=== PATIENT | female | born 1990 | race Caucasian/White ===

== ENCOUNTER → 2018-06-12 | Outpatient (REF) | payer OTHER ==
[2018-06-12 18:48] LABS: HCG, SERUM QUANTITATIVE 18554 MIU/ML
[2018-06-12 19:23] LABS: HEMATOCRIT 33.6 % (36.0-47.0); HEMOGLOBIN 10.9 g/dl (12.0-15.5); MEAN CORPUSCULAR HEMOGLOBIN 28.5 pg (27.0-33.0); MEAN CORPUSCULAR HGB CONC 32.4 g/dl (32.0-36.5); MEAN CORPUSCULAR VOLUME 87.7 fl (80.0-96.0); PLATELET COUNT, AUTOMATED 215 10^3/uL (150-450); RED BLOOD COUNT 3.83 10^6/uL (4.00-5.40); RED CELL DISTRIBUTION WIDTH 12.7 % (11.5-14.5); WHITE BLOOD COUNT 7.3 10^3/uL (4.0-10.0)
[2018-06-13 10:34] LABS: RUBELLA IgG QUALITATIVE IMMUNE (IMMUNE)
[2018-06-13 10:44] LABS: HBsAg Prenatal NEGATIVE (NEGATIVE)
[2018-06-13 11:02] LABS: HEPATITIS C VIRUS ABY INDEX 0.1 INDEX (<0.8)
[2018-06-13 11:03] LABS: HIV 1&2 SCREEN CENTAUR NEGATIVE (NEGATIVE)
== END ==
LOC: M LAB REF 17:07
DX: O36.80X0 Pregnancy with inconclusive fetal viability, not applicable or unspecified (principal)

== ENCOUNTER → 2018-06-20 | Outpatient (CLI) | payer OTHER ==
[2018-06-20 15:40] LABS: HEMOGLOBIN 10.5 g/dl (12.0-15.5); MEAN CORPUSCULAR HEMOGLOBIN 29.2 pg (27.0-33.0); MEAN CORPUSCULAR HGB CONC 33.9 g/dl (32.0-36.5); MEAN CORPUSCULAR VOLUME 86.4 fl (80.0-96.0); PLATELET COUNT, AUTOMATED 206 10^3/uL (150-450); RED BLOOD COUNT 3.59 10^6/uL (4.00-5.40); RED CELL DISTRIBUTION WIDTH 12.7 % (11.5-14.5); WHITE BLOOD COUNT 8.1 10^3/uL (4.0-10.0)
[2018-06-20 15:55] LABS: GLUCOSE CHALLENGE TEST 1 HOUR 99 MG/DL (LESS THAN 140)
== END ==
LOC: M LAB 14:21
DX: Z36.89 Encounter for other specified antenatal screening (principal); Z3A.00 Weeks of gestation of pregnancy not specified
CPT/HCPCS: 82950

== ENCOUNTER → 2018-06-24 | Outpatient (REF) | payer OTHER ==
[2018-06-24 14:51] LABS: CHLAMYDIA DNA AMPLIFICATION NEGATIVE (NEGATIVE); GC DNA AMPLIFICATION NEGATIVE (NEGATIVE)
== END ==
LOC: M LAB REF 13:05
DX: Z34.83 Encounter for supervision of other normal pregnancy, third trimester (principal); Z3A.00 Weeks of gestation of pregnancy not specified
CPT/HCPCS: 87591

== ENCOUNTER 2018-08-15 08:03 | Inpatient (IN) | payer OTHER ==
[2018-08-15] MEDS: LR 1,000 ML IV ×2 (09:19→16:21)
[2018-08-15] MEDS: PENICILLIN G POTASSIUM IV 5 MU in D5W MINI-BAG PLUS 100 ML IV (09:19)
[2018-08-15 09:49] LABS: HEMOGLOBIN 10.8 g/dl (12.0-15.5); MEAN CORPUSCULAR HEMOGLOBIN 27.3 pg (27.0-33.0); MEAN CORPUSCULAR HGB CONC 32.7 g/dl (32.0-36.5); MEAN CORPUSCULAR VOLUME 83.3 fl (80.0-96.0); PLATELET COUNT, AUTOMATED 187 10^3/uL (150-450); RED BLOOD COUNT 3.96 10^6/uL (4.00-5.40); RED CELL DISTRIBUTION WIDTH 14.8 % (11.5-14.5); WHITE BLOOD COUNT 8.1 10^3/uL (4.0-10.0)
[2018-08-15 10:11] LABS: AMPHETAMINES URINE REFLEX NEGATIVE (NEGATIVE); BARBITURATES URINE REFLEX NEGATIVE (NEGATIVE); BENZODIAZEPINES URINE REFLEX NEGATIVE (NEGATIVE); CANNABINOIDS URINE REFLEX NEGATIVE (NEGATIVE); COCAINE METABOLITE URINE REFLE NEGATIVE (NEGATIVE); METHADONE URINE REFLEX NEGATIVE (NEGATIVE); OPIATES URINE REFLEX NEGATIVE (NEGATIVE); PHENCYCLIDINE URINE REFLEX NEGATIVE (NEGATIVE)
[2018-08-15] MEDS: OXYTOCIN DRIP 30 UNITS in APPROPRIATE DILUENT 1 EA IV ×2 (11:28→21:21)
[2018-08-15] MEDS: PENICILLIN G POTASSIUM IV 2.5 MU in APPROPRIATE DILUENT 1 EA IV ×2 (13:16→17:10)
[2018-08-15] MEDS ORDERED: PROMETHAZINE INJ 25 MG/ML VIAL (J2550) As Ordered (15:50)
[2018-08-15] MEDS ORDERED: BUTORPHANOL 2 MG/ML INJ (J0595) As Ordered (15:51)
[2018-08-15] MEDS: PROMETHAZINE INJ 25 MG/ML VIAL (J2550) IV (16:20)
[2018-08-15] MEDS: BUTORPHANOL 2 MG/ML INJ (J0595) IV (16:21)
[2018-08-15 18:24] LABS: CORD GAS ABE V -8.7; CORD GAS HCO3 V 17.1 MEQ/L; CORD GAS O2 SAT V 87.6 %; CORD GAS PCO2 V 36.8 mmHg; CORD GAS PH V 7.286 UNITS; CORD GAS PO2 V 45.9 mmHg; CORD GAS SBC V 17.4 MEQ/L; CORD GAS TCO2 V 18.3 MEQ/L
[2018-08-15] MEDS ORDERED: RHOGAM 300 MCG (1500 IU) INJ (J2790) IM (19:00)
[2018-08-15] MEDS ORDERED: DOCUSATE SODIUM 100 MG CAP PO (19:00)
[2018-08-15] MEDS ORDERED: ANUSOL HC CREAM 30GM TOP (19:00)
[2018-08-15] MEDS ORDERED: MEASLES,MUMPS,RUBELLA VACCINE INJ (MMR-II) (90707) SC (19:00)
[2018-08-15] MEDS ORDERED: METHYLERGONOVINE MALEATE 0.2 MG TAB PO (19:00)
[2018-08-15] MEDS ORDERED: ACETAMINOPHEN 500 MG TAB PO (19:00)
[2018-08-15] MEDS: LIDOCAINE 1% MDV 20ML VIAL INFIL (21:21)
[2018-08-16] MEDS: PRENATAL VITAMINS CHEWABLE TABLET PO (08:24)
[2018-08-16] MEDS: IBUPROFEN 800 MG TAB PO ×2 (08:25→19:53)
[2018-08-16] MEDS: DIBUCAINE 1% OINTMENT 30GM TOP (15:20)
[2018-08-17] MEDS: PRENATAL VITAMINS CHEWABLE TABLET PO (08:05)
[2018-08-17] MEDS: IBUPROFEN 800 MG TAB PO (08:06)
== END 2018-08-17 11:30 | disposition home or self-care (01) | DRG 560 ==
LOC: M LDI 08:03 → M OBS 20:13
PROVIDERS: Advanced Practice Midwife
PROC: 0W8NXZZ Division of Female Perineum, External Approach (ICD-10-PCS; principal; 2018-08-15)
PROC: 10E0XZZ Delivery of Products of Conception, External Approach (ICD-10-PCS; 2018-08-15)
DX: O48.0 Post-term pregnancy (principal); O99.820 Streptococcus B carrier state complicating pregnancy; Z37.0 Single live birth; Z3A.41 41 weeks gestation of pregnancy; Z91.19 Patient's noncompliance with other medical treatment and regimen; O09.31 Supervision of pregnancy with insufficient antenatal care, first trimester; O09.32 Supervision of pregnancy with insufficient antenatal care, second trimester; O66.0 Obstructed labor due to shoulder dystocia

== ENCOUNTER → 2019-05-29 | Outpatient (CLI) | payer OTHER ==
[~2019-05-29] MED LIST: ADVI200C5; IBUP-1114 PO; IBUP80TA PO; MAPA500T2 PO; PRENTAB9 PO; TYLE325T5 PO
--- NOTE | 2019-05-29 20:08 | REP ---
Clinical: Anatomical evaluation. Comparison: None . Findings: Examination demonstrates a single live intrauterine in cephalic presentation. motion is identified by technologist. Placenta is noted anterior and grade zero without evidence for placenta previa or abruption. Amniotic fluid volume is normal. Cervix measures 4.8 cm in length and appears closed. No evidence for nuchal cord. Gestational age by LMP 23 weeks 4 day with LYLY 09[birth year]/1990 . Gestational age by current measurements 22 weeks 6 days with LYLY 09/26/2019 . FHR equals 124 beats per minute. BPD 5.8 cm 23 weeks 5 days HC 20.3 cm 22 weeks 3 days AC 18.4 cm 23 weeks 1 day FL 4.0 cm 22 weeks 6 days HL 3.8 cm 23 weeks 2 days HC/AC ratio 1.10 Estimated weight 555 grams ( 28 percentile). Anatomical assessment demonstrates normal structures including cranium, choroid plexus, cavum, cerebellum/posterior fossa, facial features, lungs, four-chamber heart/ventricular outflow tracts, diaphragm, stomach, cord insertion/three-vessel cord, kidneys/bladder, spine, and extremities. Impression: Single live intrauterine in cephalic presentation demonstrating appropriate interval growth. Anatomical assessment is complete and normal. No gross abnormalities are identified. Electronically Signed by Alfie Chester MD 05/29/2019 07:58 P
== END ==
LOC: M RAD 16:43
PROVIDERS: ATTEND Advanced Practice Midwife
DX: Z34.82 Encounter for supervision of other normal pregnancy, second trimester (principal); Z3A.22 22 weeks gestation of pregnancy

== ENCOUNTER → 2019-06-26 | Outpatient (CLI) | payer OTHER ==
[2019-06-26 14:22] LABS: BASO % 0.2 % (0.0-1.0); EOS # 0.1 10^3/uL (0.0-0.50); EOS % 0.8 % (0.0-3.0); HEMATOCRIT 33.4 % (36.0-47.0); HEMOGLOBIN 10.7 g/dl (12.0-15.5); LYMPH # 1.8 10^3/uL (1.5-6.5); LYMPH % 20.6 % (24.0-44.0); MEAN CORPUSCULAR HEMOGLOBIN 28.5 pg (27.0-33.0); MEAN CORPUSCULAR VOLUME 88.8 fl (80.0-96.0); MONO # 0.6 10^3/uL (0.0-0.8); MONO % 6.7 % (0.0-5.0); NEUTROPHILS # 6.3 10^3/uL (1.8-7.7); NEUTROPHILS % 71.4 % (36.0-66.0); PLATELET COUNT, AUTOMATED 262 10^3/uL (150-450); RED BLOOD COUNT 3.76 10^6/uL (4.00-5.40); WHITE BLOOD COUNT 8.8 10^3/uL (4.0-10.0)
[2019-06-26 15:14] LABS: CHLAMYDIA DNA AMPLIFICATION NEGATIVE (NEGATIVE); GC DNA AMPLIFICATION NEGATIVE (NEGATIVE)
[2019-06-26 15:39] LABS: HEPATITIS B SURFACE ANTIGEN NEGATIVE (NEGATIVE); HEPATITIS C VIRUS ABY INDEX 0.1 INDEX (<0.8); HIV 1&2 SCREEN CENTAUR NEGATIVE (NEGATIVE); RUBELLA IgG QUALITATIVE IMMUNE (IMMUNE)
== END ==
LOC: M LAB 11:36
PROVIDERS: ATTEND Advanced Practice Midwife
DX: Z34.82 Encounter for supervision of other normal pregnancy, second trimester (principal); Z3A.22 22 weeks gestation of pregnancy

== ENCOUNTER → 2019-07-29 | Outpatient (CLI) | payer OTHER ==
[2019-07-29 13:40] LABS: BASO % 0.2 % (0.0-1.0); EOS # 0.1 10^3/uL (0.0-0.50); EOS % 0.7 % (0.0-3.0); HEMATOCRIT 30.9 % (36.0-47.0); LYMPH # 1.4 10^3/uL (1.5-6.5); LYMPH % 16.2 % (24.0-44.0); MEAN CORPUSCULAR HEMOGLOBIN 28.3 pg (27.0-33.0); MEAN CORPUSCULAR HGB CONC 32.4 g/dl (32.0-36.5); MEAN CORPUSCULAR VOLUME 87.5 fl (80.0-96.0); MONO # 0.7 10^3/uL (0.0-0.8); MONO % 7.8 % (0.0-5.0); NEUTROPHILS # 6.4 10^3/uL (1.8-7.7); NEUTROPHILS % 74.8 % (36.0-66.0); PLATELET COUNT, AUTOMATED 194 10^3/uL (150-450); RED BLOOD COUNT 3.53 10^6/uL (4.00-5.40); WHITE BLOOD COUNT 8.6 10^3/uL (4.0-10.0)
== END ==
LOC: M LAB 12:06
PROVIDERS: ATTEND Advanced Practice Midwife
DX: Z34.82 Encounter for supervision of other normal pregnancy, second trimester (principal)

== ENCOUNTER → 2019-08-04 | Outpatient (CLI) | payer OTHER ==
[2019-08-04 14:58] LABS: FREE T4 0.98 NG/DL (0.76-1.46); THYROID STIMULATING HORMONE 0.353 uIU/ML (0.358-3.740)
== END ==
LOC: M SMT 11:30
PROVIDERS: ATTEND Advanced Practice Midwife
DX: Z34.83 Encounter for supervision of other normal pregnancy, third trimester (principal); Z36.89 Encounter for other specified antenatal screening

== ENCOUNTER → 2019-09-03 | Outpatient (CLI) | payer OTHER | LOC: M SMT 11:28 | PROVIDERS: ATTEND Advanced Practice Midwife | DX: Z34.83 Encounter for supervision of other normal pregnancy, third trimester (principal); Z36.85 Encounter for antenatal screening for Streptococcus B; Z36.89 Encounter for other specified antenatal screening ==

== ENCOUNTER 2019-09-19 15:52 | Inpatient (IN) | payer OTHER ==
[~2019-09-19] VITALS: Ht 160 cm; Wt 69.9 kg
[2019-09-19 16:18] VITALS: BP 113/62
[2019-09-19] MEDS ORDERED: miSOPROStol 50 MCG 1/2 TAB (S0191) SL SCH (18:00)
[2019-09-19 18:13] VITALS: BP 110/72
[2019-09-19 18:18] LABS: HEMATOCRIT 32.9 % (36.0-47.0); HEMOGLOBIN 10.8 g/dl (12.0-15.5); MEAN CORPUSCULAR HEMOGLOBIN 27.9 pg (27.0-33.0); MEAN CORPUSCULAR HGB CONC 32.8 g/dl (32.0-36.5); PLATELET COUNT, AUTOMATED 189 10^3/uL (150-450); RED BLOOD COUNT 3.87 10^6/uL (4.00-5.40); WHITE BLOOD COUNT 9.5 10^3/uL (4.0-10.0)
[2019-09-19 19:21] VITALS: BP 111/70
[2019-09-19 20:46] VITALS: BP 111/69
[2019-09-19 21:59] VITALS: BP 122/79
[2019-09-19] MEDS ORDERED: LR 1,000 ML IV SCH (23:41)
[2019-09-19] MEDS ORDERED: OXYTOCIN DRIP 30 UNITS in IV 1 EA IV SCH (23:45)
[2019-09-20] VITALS (19 sets, daily range): BP systolic 79–186; BP diastolic 47–81
[2019-09-20] MEDS ORDERED: BUTORPHANOL 2 MG/ML INJ (J0595) IV ONE (01:30)
[2019-09-20] MEDS ORDERED: PROMETHAZINE INJ 25 MG/ML VIAL (J2550) IV ONE (01:30)
[2019-09-20 07:32] LABS: CORD GAS ABE A -6.2; CORD GAS ABE V -5.3; CORD GAS HCO3 A 21.4 MEQ/L; CORD GAS HCO3 V 20.5 MEQ/L; CORD GAS O2 SAT A 30.5 %; CORD GAS O2 SAT V 81.4 %; CORD GAS PCO2 A 51.3 mmHg; CORD GAS PCO2 V 40.7 mmHg; CORD GAS PH A 7.239 UNITS; CORD GAS PH V 7.319 UNITS; CORD GAS PO2 A 17.3 mmHg; CORD GAS SBC V 19.8 MEQ/L; CORD GAS TCO2 V 21.7 MEQ/L
[2019-09-20] MEDS ORDERED: MEASLES,MUMPS,RUBELLA VACCINE INJ (MMR-II) (90707) SC SCH (07:45)
[2019-09-20] MEDS ORDERED: RHOGAM 300 MCG (1500 IU) INJ (J2790) IM SCH (07:45)
[2019-09-20] MEDS ORDERED: DIBUCAINE 1% OINTMENT 30GM TOP PRN (07:45)
[2019-09-20] MEDS ORDERED: ACETAMINOPHEN 500 MG TAB PO PRN (07:45)
[2019-09-20] MEDS ORDERED: ONDANSETRON 4MG/2ML VIAL (J2405) IV PRN (07:45)
[2019-09-20] MEDS ORDERED: DOCUSATE SODIUM 100 MG CAP PO PRN (07:45)
[2019-09-20] MEDS ORDERED: IBUPROFEN 600 MG TAB PO PRN (07:45)
[2019-09-20] MEDS ORDERED: METHYLERGONOVINE MALEATE 0.2 MG TAB PO PRN (07:45)
[2019-09-20] MEDS ORDERED: ACETAMINOPHEN TAB 650MG DOSE (2X325MG) PO PRN (07:45)
[2019-09-20] MEDS ORDERED: OXYTOCIN DRIP 30 UNITS in IV 1 EA IV ONE (08:00)
--- NOTE | 2019-09-20 08:28 | HPE ---
DATE OF ADMISSION: 09/19/2019 HISTORY: 29-year-old 5, para 2-0-2-2 female at 39 and 0/7 weeks gestation by 22 week ultrasound, estimated date of confinement (EDC) of 09/26/2019, presents for labor induction. The patient has a history of shoulder dystocia in a prior . She has occasional contractions. She denies vaginal bleeding. COURSE: The patient initiated care at 25 weeks gestation. course unremarkable. OBSTETRICAL HISTORY: 1. May 2014, 41 week vaginal delivery, 8 pounds 6 ounce female. 2. August 2018, 41 week vaginal delivery, 8 pounds 7 ounce male , was complicated by shoulder dystocia. MEDICAL HISTORY: Noncontributory. SURGICAL HISTORY: None. ALLERGIES: None. SOCIAL HISTORY: The patient denies cigarettes, alcohol or drug use. The patient lives in [place]. FAMILY HISTORY: Noncontributory. PHYSICAL EXAMINATION: Blood pressure 113/62, pulse 86, afebrile. No apparent distress. Head and neck examination normal. LUNGS: Clear. HEART: Regular rate and rhythm. ABDOMEN: Nontender. Gravid. heart tones category 1. Contractions rare. Sterile vaginal examination: 2 cm, 70%, -2, posterior, soft, vertex. Extremities: Nontender. LABORATORIES: Blood type A positive, rubella immune. RPR nonreactive. Hepatitis B and C negative. Glucose screen 89. Group B streptococcus (GBS) negative on 09/03/2019. ASSESSMENT: 29-year-old 5, para 2-0-2-2 female at 39 and 0/7 weeks gestation who presents for labor induction. PLAN: The patient is admitted on 09/19/2019. The risks of induction were discussed.
[2019-09-20] MEDS: IBUPROFEN 800 MG TAB PO PRN ×2 (08:48→20:15)
[2019-09-20] MEDS: PRENATAL VITAMINS CHEWABLE TABLET PO SCH (08:48)
[2019-09-21 05:40] VITALS: BP 106/56
[2019-09-21] MEDS: PRENATAL VITAMINS CHEWABLE TABLET PO SCH (09:22)
--- NOTE | 2019-09-21 10:38 | DN ---
DATE OF DELIVERY: 09/20/2019 PREDELIVERY DIAGNOSES: 39 weeks, labor induction. POSTDELIVERY DIAGNOSIS: Delivered. PROCEDURE: Spontaneous vaginal delivery. LAMP STACK DEVELOPER: Dr. Gildardo Mancini MD ANESTHESIA: None. ESTIMATED BLOOD LOSS: 400 mL. FINDINGS: 8 pound 5 ounce female infant. scores 3, 7 and 9. DELIVERY SUMMARY: After approximately 40 minutes second stage, the patient had spontaneous delivery of an 8 pound 5 ounce female infant, scores 3, 7 and 9 with no delivery anesthesia. Shoulder dystocia was encountered and lasted approximately 1 minute. The dystocia was relieved with a combination of Kimberley maneuver, suprapubic pressure and Paz' maneuver. The cord was doubly clamped and cut. The infant was taken by the nurses to the resuscitation table. The placenta delivered spontaneously and appeared to be intact. The patient received IV Pitocin after delivery of the placenta. There were no vaginal lacerations present. Sponge counts are correct.
[2019-09-21] MEDS ORDERED: IBUP80TA PO (13:40)
[2019-09-21] MEDS ORDERED: ACET-683 PO (13:40)
== END 2019-09-21 14:00 | disposition home or self-care (01) | DRG 560 ==
LOC: M LDI 15:52 → M OBS 09-20 09:10
PROVIDERS: ADMIT Specialist; ATTEND Specialist
PROC: 3E033VJ Introduction of Other Hormone into Peripheral Vein, Percutaneous Approach (ICD-10-PCS; 2019-09-19)
PROC: 10E0XZZ Delivery of Products of Conception, External Approach (ICD-10-PCS; principal; 2019-09-20)
DX: O66.0 Obstructed labor due to shoulder dystocia (principal); Z37.0 Single live birth; Z3A.39 39 weeks gestation of pregnancy

== ENCOUNTER → 2020-01-22 | Outpatient (REF) | payer OTHER ==
[~2020-01-22] MED LIST changes: +ACET-683 PO
== END ==
LOC: M LAB REF 15:44
PROVIDERS: ATTEND Otolaryngology
DX: B37.89 Other sites of candidiasis (principal)

== ENCOUNTER → 2021-04-07 | Outpatient (REF) | payer OTHER ==
[2021-04-07 17:33] LABS: BASO % 0.4 % (0.0-1.0); EOS # 0.1 10^3/uL (0.0-0.5); HEMATOCRIT 41.1 % (36.0-47.0); HEMOGLOBIN 13.5 g/dl (12.0-15.5); LYMPH # 1.9 10^3/uL (1.5-5.0); LYMPH % 41.3 % (24.0-44.0); MEAN CORPUSCULAR HEMOGLOBIN 28.8 pg (27.0-33.0); MEAN CORPUSCULAR HGB CONC 32.8 g/dl (32.0-36.5); MEAN CORPUSCULAR VOLUME 87.8 fl (80.0-96.0); MONO # 0.4 10^3/uL (0.0-0.8); MONO % 8.9 % (2.0-8.0); NEUTROPHILS # 2.2 10^3/uL (1.5-8.5); NEUTROPHILS % 47.2 % (36.0-66.0); PLATELET COUNT, AUTOMATED 270 10^3/uL (150-450); RED BLOOD COUNT 4.68 10^6/uL (4.00-5.40); WHITE BLOOD COUNT 4.6 10^3/uL (4.0-10.0)
[2021-04-07 17:57] LABS: ALBUMIN 4.1 GM/DL (3.2-5.2); ALT/SGPT 26 U/L (12-78); BILIRUBIN,TOTAL 0.4 MG/DL (0.2-1.0); BLOOD UREA NITROGEN 12 MG/DL (7-18); CALCIUM LEVEL 9.1 MG/DL (8.5-10.1); CARBON DIOXIDE LEVEL 27 MEQ/L (21-32); CHLORIDE LEVEL 106 MEQ/L (98-107); GLOMERULAR FILTRATION RATE > 60.0 (>60); GLUCOSE, FASTING 79 MG/DL (70-100); IRON (FE) 111 UG/DL (50-170); POTASSIUM SERUM 4.9 MEQ/L (3.5-5.1); SODIUM LEVEL 138 MEQ/L (136-145); TOTAL PROTEIN 7.1 GM/DL (6.4-8.2)
[2021-04-07 17:58] LABS: FERRITIN 12 NG/ML (8-252); PERCENT SATURATION 31.5 % (13.2-45.0); THYROID STIMULATING HORMONE 0.561 uIU/ML (0.358-3.740); TOTAL IRON BINDING CAPACITY 352 UG/DL (250-450)
[2021-04-07 18:41] LABS: TOTAL 25(OH) VITAMIN D 22.7 NG/ML (30.0-100.0)
[2021-04-07 18:42] LABS: FOLATE 19.5 NG/ML; VITAMIN B12 LEVEL 455 PG/ML
== END ==
LOC: M LAB REF 16:10
PROVIDERS: ATTEND Physician Assistant
DX: R53.83 Other fatigue (principal)

== ENCOUNTER → 2022-01-03 | Outpatient (REF) | LOC: M LABSMTC 10:24 | PROVIDERS: ATTEND Pediatrics | DX: Z20.822 Contact with and (suspected) exposure to COVID-19 (principal) ==

== ENCOUNTER → 2023-01-30 | Outpatient (CLI) | payer OTHER | LOC: M LABSMTC 07:50 | PROVIDERS: ATTEND Anesthesiology | DX: Z01.812 Encounter for preprocedural laboratory examination (principal); Z20.822 Contact with and (suspected) exposure to COVID-19 ==

== ENCOUNTER 2023-01-31 11:03 | Day surgery (SDC) | payer OTHER ==
[~2023-01-31] VITALS: Ht 160 cm; Wt 63.0 kg
[2023-01-31] MEDS ORDERED: LR 1,000 ML IV SCH ×2 (11:40→15:00)
[2023-01-31] MEDS ORDERED: MIDAZOLAM INJ 2MG/2ML VIAL As Ordered ONE (13:16)
[2023-01-31] MEDS ORDERED: fentaNYL 100 MCG/2 ML INJECTION As Ordered ONE (13:17)
[2023-01-31] MEDS ORDERED: LIDOCAINE 2% 100MG/5ML SDV (FOR ANES.) As Ordered ONE (13:17)
[2023-01-31] MEDS ORDERED: propofoL 200 MG/20 ML VIAL As Ordered ONE (13:18)
[2023-01-31] MEDS ORDERED: METHYLERGONOVINE MALEATE 0.2MG/ML 1ML VIAL As Ordered ONE (13:45)
[2023-01-31] MEDS ORDERED: DOXYCYCLINE HYCLATE 100MG TABLET PO ONE (13:50)
[2023-01-31] MEDS ORDERED: ACETAMINOPHEN 1000MG 100ML IV BAG As Ordered ONE (14:19)
[2023-01-31 14:20] LABS: HEMATOCRIT 34.4 % (36.0-47.0); HEMOGLOBIN 11.3 g/dl (12.0-15.5); MEAN CORPUSCULAR HEMOGLOBIN 28.7 pg (27.0-33.0); MEAN CORPUSCULAR HGB CONC 32.8 g/dl (32.0-36.5); MEAN CORPUSCULAR VOLUME 87.3 fl (80.0-96.0); PLATELET COUNT, AUTOMATED 261 10^3/uL (150-450); RED BLOOD COUNT 3.94 10^6/uL (4.00-5.40); WHITE BLOOD COUNT 8.9 10^3/uL (4.0-10.0)
[2023-01-31] MEDS ORDERED: ePHEDrine SULFATE 25 MG/5 ML(5MG/ML) SYRINGE As Ordered ONE (14:24)
[2023-01-31] MEDS ORDERED: OXYTOCIN INJ 10UNITS/ML 1ML VIAL As Ordered ONE (14:48)
[2023-01-31] MEDS ORDERED: fentaNYL 100 MCG/2 ML INJECTION IV PRN (15:00)
[2023-01-31] MEDS ORDERED: ONDANSETRON 4MG 2ML VIAL IV PRN (15:00)
[2023-01-31] MEDS ORDERED: METOCLOPRAMIDE INJ 10MG/2ML VIAL IV PRN (15:00)
[2023-01-31] MEDS ORDERED: oxyCODONE 5MG TAB PO PRN (15:00)
[2023-01-31] MEDS ORDERED: PERCOCET 5MG/325MG TAB PO PRN (15:20)
[2023-01-31] MEDS ORDERED: KETOROLAC 60MG 2ML VIAL As Ordered ONE (15:20)
[2023-01-31 15:42] VITALS: BP 116/70
[2023-01-31] MEDS ORDERED: KETOROLAC 30 MG/ML 1ML VIAL IV SCH (21:00)
== END 2023-01-31 16:09 | disposition home or self-care (01) ==
LOC: M SDC 11:03
PROVIDERS: ATTEND Obstetrics & Gynecology
DX: O02.1 Missed abortion (principal)
CPT/HCPCS: 36415; 59820; 85027; 86850; 86900; 86901; 88305; J2210; J2250; J2590; J3010

== ENCOUNTER → 2023-07-19 | Outpatient (CLI) | payer OTHER ==
[2023-07-19 16:19] LABS: HEMATOCRIT 35.2 % (36.0-47.0); HEMOGLOBIN 11.3 g/dl (12.0-15.5); MEAN CORPUSCULAR HEMOGLOBIN 26.7 pg (27.0-33.0); MEAN CORPUSCULAR HGB CONC 32.1 g/dl (32.0-36.5); PLATELET COUNT, AUTOMATED 316 10^3/uL (150-450); RED BLOOD COUNT 4.24 10^6/uL (4.00-5.40); WHITE BLOOD COUNT 7.6 10^3/uL (4.0-10.0)
[2023-07-19 17:22] LABS: HIV 1&2 SCREEN NEGATIVE (NEGATIVE)
[2023-07-19 17:30] LABS: HEPATITIS C VIRUS ABY INDEX 0.12 INDEX (<0.8)
[2023-07-19 17:54] LABS: GC DNA AMPLIFICATION NEGATIVE (NEGATIVE)
== END ==
LOC: M PLALAB 11:53
PROVIDERS: ATTEND Specialist
DX: Z34.81 Encounter for supervision of other normal pregnancy, first trimester (principal); Z3A.00 Weeks of gestation of pregnancy not specified

== ENCOUNTER → 2023-10-02 | Outpatient (CLI) | payer OTHER | LOC: M WHC 10:01 | PROVIDERS: ATTEND Obstetrics & Gynecology | DX: Z34.92 Encounter for supervision of normal pregnancy, unspecified, second trimester (principal); Z3A.21 21 weeks gestation of pregnancy ==

== ENCOUNTER → 2023-12-09 | Outpatient (CLI) | payer OTHER ==
[2023-12-09 15:55] LABS: HEMOGLOBIN 9.2 g/dl (12.0-15.5); MEAN CORPUSCULAR HEMOGLOBIN 26.6 pg (27.0-33.0); MEAN CORPUSCULAR HGB CONC 32.9 g/dl (32.0-36.5); MEAN CORPUSCULAR VOLUME 80.9 fl (80.0-96.0); PLATELET COUNT, AUTOMATED 278 10^3/uL (150-450); RED BLOOD COUNT 3.46 10^6/uL (4.00-5.40); WHITE BLOOD COUNT 9.1 10^3/uL (4.0-10.0)
[2023-12-09 17:21] LABS: CHLAMYDIA DNA AMPLIFICATION NEGATIVE (NEGATIVE); GC DNA AMPLIFICATION NEGATIVE (NEGATIVE)
== END ==
LOC: M PLALAB 13:22
PROVIDERS: ATTEND Obstetrics & Gynecology
DX: Z34.92 Encounter for supervision of normal pregnancy, unspecified, second trimester (principal); Z3A.00 Weeks of gestation of pregnancy not specified

== ENCOUNTER → 2024-01-06 | Outpatient (CLI) | payer OTHER | LOC: M WHC 11:12 | PROVIDERS: ATTEND Obstetrics & Gynecology | DX: O09.299 Supervision of pregnancy with other poor reproductive or obstetric history, unspecified trimester (principal) ==

== ENCOUNTER → 2024-01-07 | Outpatient (REF) | payer OTHER | LOC: M SFHCWAGY 13:34 | PROVIDERS: ATTEND Obstetrics & Gynecology | DX: Z36.89 Encounter for other specified antenatal screening (principal); Z3A.35 35 weeks gestation of pregnancy ==

== ENCOUNTER 2024-01-24 05:48 | Outpatient (CLI) | payer OTHER ==
[~2024-01-24] VITALS: Ht 160 cm; Wt 72.6 kg
[2024-01-24 06:07] VITALS: BP 105/51
[2024-01-24] MEDS: ACETAMINOPHEN 500 MG TAB PO PRN (06:35)
[2024-01-24 07:01] LABS: BASO % 0.2 % (0.0-1.0); HEMATOCRIT 26.2 % (36.0-47.0); HEMOGLOBIN 8.4 g/dl (12.0-15.5); LYMPH # 0.3 10^3/uL (1.5-5.0); LYMPH % 2.9 % (24.0-44.0); MEAN CORPUSCULAR HEMOGLOBIN 24.1 pg (27.0-33.0); MEAN CORPUSCULAR HGB CONC 32.1 g/dl (32.0-36.5); MEAN CORPUSCULAR VOLUME 75.1 fl (80.0-96.0); MONO # 0.7 10^3/uL (0.0-0.8); MONO % 8.4 % (2.0-8.0); NEUTROPHILS # 7.6 10^3/uL (1.5-8.5); NEUTROPHILS % 87.8 % (36.0-66.0); PLATELET COUNT, AUTOMATED 220 10^3/uL (150-450); RED BLOOD COUNT 3.49 10^6/uL (4.00-5.40); WHITE BLOOD COUNT 8.6 10^3/uL (4.0-10.0)
[2024-01-24] MEDS: OSELTAMIVIR PHOSPHATE 75 MG CAP (TAMIFLU) PO ONE (09:29)
[2024-01-24] MEDS ORDERED: OSEL75CA PO (09:50)
== END 2024-01-24 10:00 | disposition home or self-care (01) ==
LOC: M LDO 05:48
PROVIDERS: ATTEND Obstetrics & Gynecology
DX: O98.513 Other viral diseases complicating pregnancy, third trimester (principal); U07.1 COVID-19; J10.1 Influenza due to other identified influenza virus with other respiratory manifestations; Z3A.38 38 weeks gestation of pregnancy; O99.513 Diseases of the respiratory system complicating pregnancy, third trimester
CPT/HCPCS: 59025; 81001; 85025; 87486; 87581; 87633; 87798; G0463

== ENCOUNTER 2024-01-28 23:14 | Inpatient (IN) | payer OTHER ==
[~2024-01-28] VITALS: Ht 160 cm; Wt 75.4 kg
[~2024-01-28 23:14] MED LIST changes: +OSEL75CA PO
[2024-01-28 23:33] VITALS: BP 120/70
[2024-01-29] VITALS (9 sets, daily range): BP systolic 107–122; BP diastolic 56–78; O2SAT 96–98
[2024-01-29] MEDS: LACTATED RINGER'S 1000 ML IV STA (00:01)
[2024-01-29] MEDS: BICITRA 30ML SOLN UDC PO ONE (00:05)
[2024-01-29] MEDS ORDERED: METHYLERGONOVINE MALEATE 0.2MG/ML 1ML VIAL IM PRN (00:05)
[2024-01-29] MEDS ORDERED: TRANEXAMIC ACID INJection 1,000 MG in NS 100 ML IV PRN (00:05)
[2024-01-29] MEDS: LR 1,000 ML IV SCH ×3 (00:05→03:30)
[2024-01-29] MEDS ORDERED: OXYTOCIN DRIP 30 UNITS in IV 1 EA IV PRN (00:05)
[2024-01-29] MEDS: AZITHROMYCIN INJ 500 MG, VIAL MATE ADAPTER 1 EACH in NS 250 ML IV ONE (00:05)
[2024-01-29] MEDS: ceFAZolin SOD 2 GM in IV 1 EA IV ONE (00:05)
[2024-01-29] MEDS ORDERED: CARBOPROST TROMETHAMINE 250 MCG/ML AMP IM PRN (00:05)
[2024-01-29 00:27] LABS: HEMATOCRIT 27.7 % (36.0-47.0); MEAN CORPUSCULAR HEMOGLOBIN 24.4 pg (27.0-33.0); MEAN CORPUSCULAR HGB CONC 32.5 g/dl (32.0-36.5); MEAN CORPUSCULAR VOLUME 75.1 fl (80.0-96.0); PLATELET COUNT, AUTOMATED 216 10^3/uL (150-450); RED BLOOD COUNT 3.69 10^6/uL (4.00-5.40); WHITE BLOOD COUNT 9.1 10^3/uL (4.0-10.0)
[2024-01-29] MEDS ORDERED: MORPHINE PRES-FREE INJ 10 MG/10 ML VIAL As Ordered ONE (01:48)
[2024-01-29] MEDS ORDERED: ePHEDrine SULFATE 25 MG/5 ML(5MG/ML) SYRINGE As Ordered ONE (01:49)
[2024-01-29] MEDS ORDERED: OXYTOCIN 30UNITS IN 0.9% NaCl 500ML IV BAG As Ordered ONE (01:49)
[2024-01-29] MEDS ORDERED: PHENYLephrine 500MCG 5ML (100MCG/ML) SYRINGE As Ordered ONE (01:49)
[2024-01-29] MEDS ORDERED: ONDANSETRON 4MG 2ML VIAL As Ordered ONE (02:17)
[2024-01-29] MEDS ORDERED: KETOROLAC 60MG 2ML VIAL As Ordered ONE (02:38)
[2024-01-29] MEDS ORDERED: MOM 30ML SUSPENSION UDC PO PRN (03:15)
[2024-01-29] MEDS ORDERED: PERCOCET 5MG/325MG TAB PO PRN (03:15)
[2024-01-29] MEDS ORDERED: RHOGAM 300MCG (1500IU) INJ IM SCH (03:15)
[2024-01-29] MEDS ORDERED: METHYLERGONOVINE MALEATE 0.2 MG TAB PO PRN (03:15)
[2024-01-29] MEDS ORDERED: IBUP80TA PO (03:25)
[2024-01-29] MEDS ORDERED: COLA100C5 PO (03:25)
[2024-01-29] MEDS ORDERED: FERR1TAB8 PO (03:25)
[2024-01-29] MEDS ORDERED: PERCOCET PO (03:25)
[2024-01-29] MEDS ORDERED: METOCLOPRAMIDE INJ 10MG/2ML VIAL IV PRN (03:30)
[2024-01-29] MEDS ORDERED: diphenhydrAMINE 50MG/ML VIAL IV PRN (03:30)
[2024-01-29] MEDS ORDERED: ONDANSETRON 4MG 2ML VIAL IV PRN (03:30)
[2024-01-29] MEDS ORDERED: NALOXONE INJ 0.4MG/1ML VIAL IV PRN ×2 (03:30)
[2024-01-29] MEDS ORDERED: **NOTE PATIENT COMMENT** MISC XX SCH (03:30)
[2024-01-29] MEDS: SLF 3 ML SYR IV SCH (03:30)
[2024-01-29] MEDS ORDERED: fentaNYL 100 MCG/2 ML INJECTION As Ordered ONE (03:43)
[2024-01-29] MEDS: OXYTOCIN DRIP 30 UNITS in IV 1 EA IV SCH (03:44)
[2024-01-29] MEDS: fentaNYL 100 MCG/2 ML INJECTION IV PRN (03:45)
[2024-01-29] MEDS ORDERED: oxyCODONE 5MG TAB As Ordered ONE (04:16)
[2024-01-29] MEDS: oxyCODONE 5MG TAB PO PRN (04:17)
[2024-01-29] MEDS: PRENATAL VITAMINS CHEWABLE TABLET PO SCH (08:26)
[2024-01-29] MEDS: DOCUSATE SODIUM 100MG CAPSULE PO SCH (08:26)
[2024-01-29] MEDS: FERROUS SULFATE 325MG TAB PO SCH (08:26)
[2024-01-29] MEDS: KETOROLAC 30 MG/ML 1ML VIAL IV SCH (08:26)
[2024-01-29] MEDS ORDERED: BOOSTRIX VACCINE (TETANUS/DIPHTH/ACEL. PERTUSSIS) 0.5ML SYR IM.IMMUN ONE (10:00)
[2024-01-29] MEDS: ONDANSETRON 4MG 2ML VIAL IV PRN (10:13)
[2024-01-30] VITALS (19 sets, daily range): BP systolic 108–128; BP diastolic 54–81; TEMP 97–98.9; O2SAT 95–100
[2024-01-30] MEDS: IBUPROFEN 800 MG TAB PO SCH (05:14)
[2024-01-30 07:37] LABS: MEAN CORPUSCULAR HEMOGLOBIN 24.1 pg (27.0-33.0); MEAN CORPUSCULAR VOLUME 75.2 fl (80.0-96.0); PLATELET COUNT, AUTOMATED 210 10^3/uL (150-450); RED BLOOD COUNT 2.74 10^6/uL (4.00-5.40); WHITE BLOOD COUNT 10.6 10^3/uL (4.0-10.0)
[2024-01-30 07:49] LABS: HEMATOCRIT 20.6 % (36.0-47.0); HEMOGLOBIN 6.6 g/dl (12.0-15.5)
[2024-01-30] MEDS: BOOSTRIX VACCINE (TETANUS/DIPHTH/ACEL. PERTUSSIS) 0.5ML SYR IM.IMMUN ONE (09:00)
[2024-01-30] MEDS: PERCOCET 5MG/325MG TAB PO PRN (12:29)
[2024-01-30] MEDS: SIMETHICONE 80MG CHEW TAB PO PRN (21:09)
[2024-01-31 02:00] VITALS: BP 115/67; O2SAT 98
[2024-01-31 06:00] VITALS: BP 125/69; O2SAT 99
[2024-01-31 06:54] LABS: MEAN CORPUSCULAR HEMOGLOBIN 24.2 pg (27.0-33.0); MEAN CORPUSCULAR VOLUME 75.8 fl (80.0-96.0); PLATELET COUNT, AUTOMATED 229 10^3/uL (150-450); RED BLOOD COUNT 4.17 10^6/uL (4.00-5.40); WHITE BLOOD COUNT 11.9 10^3/uL (4.0-10.0)
[2024-01-31 07:06] LABS: HEMATOCRIT 31.6 % (36.0-47.0); HEMOGLOBIN 10.1 g/dl (12.0-15.5)
[2024-01-31] MEDS: MEASLES,MUMPS,RUBELLA VACCINE INJ (MMR-II) SC.IMMUN ONE (09:06)
[2024-01-31] MEDS: BOOSTRIX VACCINE (TETANUS/DIPHTH/ACEL. PERTUSSIS) 0.5ML SYR IM.IMMUN ONE (09:49)
[2024-01-31 13:03] VITALS: BP 132/83; TEMP 98.2; O2SAT 98
== END 2024-01-31 15:20 | disposition home or self-care (01) | DRG 540 ==
LOC: M LDO 23:14 → M LDI 23:59 → M OBS 01-29 05:11
PROVIDERS: ADMIT Obstetrics & Gynecology; ATTEND Obstetrics & Gynecology
PROC: 10D00Z1 Extraction of Products of Conception, Low, Open Approach (ICD-10-PCS; principal; 2024-01-29 02:25)
PROC: 30233N1 Transfusion of Nonautologous Red Blood Cells into Peripheral Vein, Percutaneous Approach (ICD-10-PCS; 2024-01-30)
DX: O99.03 Anemia complicating the puerperium (principal); D62 Acute posthemorrhagic anemia; Z37.0 Single live birth; Z87.59 Personal history of other complications of pregnancy, childbirth and the puerperium; Z96.641 Presence of right artificial hip joint; Z96.651 Presence of right artificial knee joint

== ENCOUNTER → 2025-06-03 | Outpatient (REF) | payer MEDICAID, OTHER ==
[~2025-06-03] MED LIST changes: +COLA100C5 PO; +FERR1TAB8 PO; +PERCOCET PO
[2025-06-03 18:45] LABS: BASO # 0.0 10^3/uL (0.0-0.2); BASO % 0.7 % (0.0-1.0); EOS # 0.1 10^3/uL (0.0-0.5); EOS % 1.1 % (0.0-3.0); LYMPH # 1.9 10^3/uL (1.5-5.0); LYMPH % 35.1 % (24.0-44.0); MONO # 0.5 10^3/uL (0.0-0.8); MONO % 8.3 % (2.0-8.0); NEUTROPHILS # 3.0 10^3/uL (1.5-8.5); NEUTROPHILS % 54.6 % (36.0-66.0); PLATELET COUNT, AUTOMATED 294 10^3/uL (150-450)
[2025-06-03 18:53] LABS: IRON (FE) 110.0 UG/DL (50-170); PERCENT SATURATION 32.3 % (13.2-45.0)
[2025-06-03 18:54] LABS: LUTEINIZING HORMONE 11.3 mIU/ML; PROLACTIN 7.29 NG/ML
[2025-06-03 18:55] LABS: PROGESTERONE 10.06 NG/ML; TOTAL 25(OH) VITAMIN D 48.2 NG/ML (20.0-100.0)
== END ==
LOC: M LAB REF 18:03
PROVIDERS: ATTEND Nurse Practitioner Family
DX: N64.3 Galactorrhea not associated with childbirth (principal); Z86.2 Personal history of diseases of the blood and blood-forming organs and certain disorders involving the immune mechanism; E55.9 Vitamin D deficiency, unspecified

== ENCOUNTER → 2025-06-22 | Outpatient (CLI) | payer OTHER ==
[2025-06-22 13:29] LABS: CORTISOL AM 20.5 UG/DL (4.3-22.4)
[2025-06-22 13:33] LABS: FREE T4 1.36 NG/DL (0.89-1.76)
[2025-06-22 13:35] LABS: THYROID PEROXIDASE ANTIBODY < 28.0 U/ML (<60.0); TOTAL T3 130.6 NG/DL (60.0-181.0)
== END ==
LOC: M PLALAB 09:27
PROVIDERS: ATTEND Nurse Practitioner Family
DX: R94.6 Abnormal results of thyroid function studies (principal)

== ENCOUNTER → 2025-07-09 | Outpatient (CLI) | payer OTHER | LOC: M WHC 09:41 | PROVIDERS: ATTEND Nurse Practitioner Family | DX: E05.20 Thyrotoxicosis with toxic multinodular goiter without thyrotoxic crisis or storm (principal) ==

== ENCOUNTER → 2025-10-05 | Outpatient (CLI) | payer OTHER | LOC: M WHC 09:31 | PROVIDERS: ATTEND Nurse Practitioner Family | DX: N64.3 Galactorrhea not associated with childbirth (principal) ==